=== PATIENT | male | born 1975 | race Caucasian/White ===

== ENCOUNTER 2017-11-03 11:55 | Observation (INO) ==
[2017-11-03 13:30] LABS: Basophils % 0.5 % (0.0-0.8); Eosinophils # 0.2 10*3/uL (0.0-0.87); Eosinophils % 2.5 % (0.00-10.9); Hematocrit 48.5 VOL% (42.0-52.0); Hemoglobin 17.1 GM/DL (14.0-18.0); Immature Granulocytes % 1.2 %; Lymphocytes # 1.4 10*3/uL (1.4-4.0); Lymphocytes % 16.7 % (21.2-54.2); Mean Corpuscular HGB Conc 35.3 GM/DL (32-36); Mean Corpuscular Hemoglobin 30 PG (27-34); Mean Corpuscular Volume 86.1 FL (87-102); Mean Platelet Volume 10.3 FL (9.6-12.0); Monocytes # 0.5 10*3/uL (0.11-0.8); Monocytes % 6.5 % (1.7-12.7); Neutrophils % 72.6 % (38.7-73.9); Platelet Count 264 T/CUMM (130-400); Red Blood Count 5.63 MC/CUMM (3.8-5.5); Red Cell Distribution Width 11.9 % (9.3-17.3); White Blood Count 8.3 T/CUMM (4-12)
[2017-11-03 13:31] LABS: Apearance,Urine Slightly Hazy (Clear); Bacteria,Urine Occasional /HPF (Few); Bilirubin,Urine Negative (Negative); Blood, Urine Negative (Negative); Glucose,Urine (UA) 50 mg/dL (Negative); Hyaline Casts,Urine 1 /LPF (0-3); Ketones,Urine Negative (Negative); Mucus,Urine Many /LPF (Occasional); Nitrite,Urine Negative (Negative); Protein,Urine 100 MG/DL; RBC,Urine <1 /HPF (0-4); Squamous Epithelial Cell,Urine Occasional /HPF (0-10); Urine Color Amber (Yellow); Urine Specific Gravity 1.019 (1.001-1.035); Urine Urobilinogen < 2.0 EU/DL (0.2-1.0); WBC,Urine 1 /HPF (0-6)
[2017-11-03 13:34] LABS: Barbiturates Screen,Urine Negative (Negative); Benzodiazepines Screen,Urine Negative (Negative); Cannabinoid Screen,Urine Negative (Negative); Opiate Screen,Urine Negative (Negative); Phencyclidine Screen,Urine Negative (Negative)
[2017-11-03 13:49] LABS: Albumin 3.8 G/DL (3.4-5.0); Calcium 8.5 MG/DL (8.5-10.1); Osmolality,Calculated 280.5 MOS/KG (273-304); Potassium 3.5 MMOL/L (3.5-5.1); Total Protein 7.3 G/DL (6.4-8.3)
[2017-11-03] MEDS ORDERED: MAGNESIUM SULF RIDER 2 GM in PREMIX 1 EACH IV PRN (15:34)
[2017-11-03] MEDS ORDERED: POTASSIUM CHLORIDE 20 MEQ TABLET PO PRN (15:34)
[2017-11-03] MEDS ORDERED: ACETAMINOPHEN 325 MG TABLET PO PRN (15:34)
[2017-11-03] MEDS ORDERED: ONDANSETRON 4 MG/2 ML VIAL IV PRN (15:34)
[2017-11-03] MEDS ORDERED: ZALEPLON 5 MG CAPSULE PO PRN (15:34)
[2017-11-03] MEDS ORDERED: MAGNESIUM SULF RIDER 4 GM in PREMIX 1 EACH IV PRN (15:34)
[2017-11-03] MEDS ORDERED: MORPHINE 4 MG/1 ML VIAL IV PRN (15:37)
[2017-11-03] MEDS ORDERED: NITROGLYCERIN SL 0.4 MG TABLET SL PRN (15:37)
[2017-11-03] MEDS ORDERED: COLCHICINE 0.6 MG TABLET PO PRN (15:38)
[2017-11-03] MEDS ORDERED: SODIUM CHLORIDE 0.45% 1,000 ML IV SCH (16:00)
[2017-11-03] MEDS: ENOXAPARIN 120 MG/0.8 ML SYRINGE SUBCUT SCH (17:49)
[2017-11-03] MEDS: metFORMIN 500 MG TABLET PO SCH (17:49)
[2017-11-03] MEDS ORDERED: GEMFIBROZIL 600 MG TABLET PO SCH (19:00)
[2017-11-04 05:17] LABS: Calcium 8.1 MG/DL (8.5-10.1)
[2017-11-04 05:18] LABS: Osmolality,Calculated 284.4 MOS/KG (273-304); Potassium 3.2 MMOL/L (3.5-5.1); Risk Ratio 5.36; Thyroid Stimulating Hormone 6.87 uIU/ml (0.358-3.74); VLDL CHOLESTEROL 76.6 MG/DL
[2017-11-04] MEDS: ENOXAPARIN 120 MG/0.8 ML SYRINGE SUBCUT SCH (05:55)
[2017-11-04] MEDS ORDERED: PANTOPRAZOLE 40 MG TABLET PO SCH (09:00)
[2017-11-04] MEDS ORDERED: FEBUXOSTAT 80 MG TABLET PO SCH (09:00)
[2017-11-04 11:58] VITALS: BP 149/75
[2017-11-04] MEDS: metFORMIN 500 MG TABLET PO SCH (13:16)
[2017-11-04] MEDS ORDERED: ATORVASTATIN 20 MG TABLET PO SCH (15:00)
[2017-11-04] MEDS ORDERED: OLMESARTAN 5 MG TABLET PO SCH (15:00)
[2017-11-04] MEDS ORDERED: ASPIRIN CHEW 81 MG TABLET PO SCH (15:00)
[2017-11-05] MEDS ORDERED: ASPIRIN EC 81 MG TABLET PO SCH (09:00)
== END 2017-11-04 16:18 | disposition home or self-care (01) ==
LOC: N.ED 11:55 → N.EDINP 11:55 → N.TELES 16:30
PROVIDERS: ADMIT Family Medicine; ATTEND Family Medicine